=== PATIENT | male | born 1945 | race Caucasian/White ===

== ENCOUNTER 2020-06-05 22:42 | Inpatient (IN) | payer MEDICARE ==
[~2020-06-05] VITALS: Ht 165.1 cm; Wt 85.7 kg
[~2020-06-05 22:42] MED LIST: AMLO10TA80 PO; ASPI-1160 PO; LANTUSUD SUBCUT; LOSA100T3 PO; METO25TA6 PO
[2020-06-05 22:45] VITALS: BP 164/67
[2020-06-05 23:00] VITALS: BP 164/67
[2020-06-05 23:40] VITALS: BP 143/64
[2020-06-05] MEDS ORDERED: ATOR10TA69 MT (23:59)
[2020-06-06] MEDS ORDERED: ONDANSETRON 4MG ODT PO PRN (00:45)
[2020-06-06] MEDS ORDERED: POLYETHYLENE GLYCOL 3350 (17GM) 1 DOSE PACK PO PRN (00:45)
[2020-06-06] MEDS ORDERED: DEXTROSE 50% WATER 50ML SYRINGE IV PRN (00:45)
[2020-06-06] MEDS ORDERED: SENNOSIDES/DOCUSATE SOD 8.6/50MG TABLET PO PRN (00:45)
[2020-06-06] MEDS ORDERED: HYDROCODONE/ACETAMINOPHEN 5/325MG TABLET PO PRN (00:45)
[2020-06-06] MEDS ORDERED: *PATIENT'S OWN MEDICATION STORAGE XX SCH (02:45)
[2020-06-06 06:26] LABS: EOSINOPHILS % 5.7 % (0.0-5.0); HEMATOCRIT. 31.3 % (42.0-52.0); HEMOGLOBIN. 10.7 g/dL (14.0-18.0); LYMPHOCYTES % 20.6 % (20.0-50.0); MEAN CORPUSCULAR VOLUME 90.5 fL (80.0-94.0); MEAN PLATELET VOLUME 8.6 fl (7.4-10.4); MONOCYTES % 12.9 % (2.0-8.0); NEUTROPHILS % 59.8 % (40.0-76.0); PLATELET 219 x1000/uL (130-400); RED BLOOD CELL COUNT 3.46 mill/uL (4.7-6.1); RED CELL DISTRIBUTION WIDTH 13.6 % (11.6-14.6)
[2020-06-06 06:29] LABS: CHLORIDE 107 mEq/L (98-107)
[2020-06-06] MEDS: BLOOD SUGAR DIAGNOSTIC STRIP TEST SCH ×4 (06:58→20:35)
[2020-06-06 07:58] VITALS: BP 132/40
[2020-06-06] MEDS: INSULIN LISPRO 100 UNITS/ML SUBCUT SCH ×4 (09:00→21:09)
[2020-06-06] MEDS: CLOPIDOGREL 75MG TABLET PO SCH (09:32)
[2020-06-06] MEDS: HEPARIN 5000 UNITS/ML VIAL SUBCUT SCH ×2 (09:32→20:35)
[2020-06-06] MEDS: FAMOTIDINE 20MG TABLET PO SCH (09:32)
[2020-06-06] MEDS: ASPIRIN 325MG EC TABLET PO SCH (17:40)
[2020-06-06 20:00] VITALS: BP 146/74
[2020-06-06] MEDS: ATORVASTATIN CALCIUM 40MG TABLET PO SCH (20:35)
[2020-06-06] MEDS: INSULIN GLARGINE UD 100 UNITS/ML SYR SUBCUT SCH (21:10)
[2020-06-07 04:40] LABS: CLARITY URINE CLEAR (CLEAR); COLOR URINE YELLOW (YELLOW); KETONES URINE NEGATIVE (NEGATIVE); LEUKOCYTE ESTERASE URINE NEGATIVE (NEGATIVE); NITRITE URINE NEGATIVE (NEGATIVE); OCCULT BLOOD URINE TRACE (NEGATIVE); PROTEIN URINE 2+ (NEGATIVE); SPECIFIC GRAVITY URINE 1.021 (1.005-1.030); UROBILINOGEN URINE 0.2 E.U./dL (0.2-1.0)
[2020-06-07] MEDS: INSULIN LISPRO 100 UNITS/ML SUBCUT SCH ×4 (05:14→22:17)
[2020-06-07] MEDS: BLOOD SUGAR DIAGNOSTIC STRIP TEST SCH ×4 (05:14→21:49)
[2020-06-07 07:00] LABS: BASOPHILS % 0.8 % (0.0-2.0); EOSINOPHILS % 7.2 % (0.0-5.0); HEMATOCRIT. 32.3 % (42.0-52.0); HEMOGLOBIN. 10.9 g/dL (14.0-18.0); LYMPHOCYTES % 22.2 % (20.0-50.0); MEAN CORPUSCULAR HEMOGLOBIN 30.6 pg (28.0-32.0); MEAN CORPUSCULAR VOLUME 90.2 fL (80.0-94.0); MEAN PLATELET VOLUME 9.1 fl (7.4-10.4); MONOCYTES % 12.9 % (2.0-8.0); NEUTROPHILS % 56.9 % (40.0-76.0); PLATELET 229 x1000/uL (130-400); RED BLOOD CELL COUNT 3.57 mill/uL (4.7-6.1); RED CELL DISTRIBUTION WIDTH 13.3 % (11.6-14.6)
[2020-06-07 07:15] LABS: CHLORIDE 108 mEq/L (98-107)
[2020-06-07 07:23] LABS: PHOSPHORUS 3.1 mg/dL (2.5-4.9)
[2020-06-07 07:24] LABS: LDL CHOLESTEROL 59 mg/dL (5-100); TOTAL IRON BINDING CAPACITY 231 ug/dL (250-450)
[2020-06-07 07:26] LABS: HDL CHOLESTEROL 36 mg/dL (40-59)
[2020-06-07 07:33] LABS: PROSTRATE SPECIFIC AG TOTAL 4.07 ng/mL (0.0-4.0)
[2020-06-07 08:00] VITALS: BP 152/40
[2020-06-07] MEDS: HEPARIN 5000 UNITS/ML VIAL SUBCUT SCH ×2 (09:13→22:09)
[2020-06-07] MEDS: FAMOTIDINE 20MG TABLET PO SCH (09:13)
[2020-06-07] MEDS: CLOPIDOGREL 75MG TABLET PO SCH (09:13)
[2020-06-07] MEDS: ASPIRIN 325MG EC TABLET PO SCH (09:13)
[2020-06-07] MEDS: CYANOCOBALAMIN 1000MCG/ML VIAL IM SCH (11:27)
[2020-06-07] MEDS: POVIDONE-IODINE 10% TOPICAL SOLN 240ML TOP SCH (11:28)
[2020-06-07 20:00] VITALS: BP 124/62
[2020-06-07 21:16] LABS: T4 FREE 1.4 ng/dL (0.76-1.46)
[2020-06-07] MEDS: ATORVASTATIN CALCIUM 40MG TABLET PO SCH (22:10)
[2020-06-07] MEDS: INSULIN GLARGINE UD 100 UNITS/ML SYR SUBCUT SCH (22:19)
[2020-06-08 03:36] LABS: *AMPHETAMINES SCREEN URINE NEGATIVE (NEGATIVE); *BARBITURATES SCREEN URINE NEGATIVE (NEGATIVE); *BENZODIAZEPINES SCREEN URINE NEGATIVE (NEGATIVE); *COCAINE SCREEN URINE NEGATIVE (NEGATIVE); METHADONE URINE SCREEN NEGATIVE (NEGATIVE)
[2020-06-08 03:37] LABS: CANNABINOID URINE SCREEN NEGATIVE (NEGATIVE); OPIATES URINE SCREEN NEGATIVE (NEGATIVE); PHENCYCLIDINE URINE SCREEN NEGATIVE (NEGATIVE)
[2020-06-08 04:09] LABS: BASOPHILS % 0.8 % (0.0-2.0); EOSINOPHILS % 5.9 % (0.0-5.0); HEMATOCRIT. 34.6 % (42.0-52.0); HEMOGLOBIN. 11.3 g/dL (14.0-18.0); LYMPHOCYTES % 25.2 % (20.0-50.0); MEAN CORPUSCULAR VOLUME 91.5 fL (80.0-94.0); MEAN PLATELET VOLUME 8.8 fl (7.4-10.4); MONOCYTES % 14.3 % (2.0-8.0); NEUTROPHILS % 53.8 % (40.0-76.0); PLATELET 233 x1000/uL (130-400); RED BLOOD CELL COUNT 3.78 mill/uL (4.7-6.1); RED CELL DISTRIBUTION WIDTH 13.7 % (11.6-14.6)
[2020-06-08 04:40] LABS: PROTHROMBIN TIME 11.1 sec (9.6-11.0)
[2020-06-08 05:34] LABS: CHLORIDE 109 mEq/L (98-107)
[2020-06-08 06:00] LABS: HEPATITIS B SURFACE ANTIGEN NEGATIVE
[2020-06-08] MEDS: BLOOD SUGAR DIAGNOSTIC STRIP TEST SCH ×4 (06:25→21:11)
[2020-06-08] MEDS: INSULIN LISPRO 100 UNITS/ML SUBCUT SCH ×4 (06:26→21:21)
[2020-06-08 06:30] LABS: HEPATITIS A AB IGM NEGATIVE (NEGATIVE)
[2020-06-08 07:59] VITALS: BP 159/85
[2020-06-08] MEDS: HEPARIN 5000 UNITS/ML VIAL SUBCUT SCH ×2 (08:41→21:11)
[2020-06-08] MEDS: CYANOCOBALAMIN 1000MCG/ML VIAL IM SCH (08:41)
[2020-06-08] MEDS: CLOPIDOGREL 75MG TABLET PO SCH (08:42)
[2020-06-08] MEDS: ASPIRIN 325MG EC TABLET PO SCH (08:42)
[2020-06-08] MEDS: FAMOTIDINE 20MG TABLET PO SCH (08:42)
[2020-06-08] MEDS: POVIDONE-IODINE 10% TOPICAL SOLN 240ML TOP SCH (08:56)
[2020-06-08 20:00] VITALS: BP 110/50
[2020-06-08] MEDS: INSULIN GLARGINE UD 100 UNITS/ML SYR SUBCUT SCH (21:22)
[2020-06-08] MEDS: ATORVASTATIN CALCIUM 40MG TABLET PO SCH (21:25)
[2020-06-09] MEDS: BLOOD SUGAR DIAGNOSTIC STRIP TEST SCH ×3 (06:05→21:11)
[2020-06-09] MEDS: INSULIN LISPRO 100 UNITS/ML SUBCUT SCH ×4 (06:08→21:20)
[2020-06-09 07:13] LABS: BASOPHILS % 0.6 % (0.0-2.0); EOSINOPHILS % 5.6 % (0.0-5.0); HEMATOCRIT. 34.3 % (42.0-52.0); HEMOGLOBIN. 11.5 g/dL (14.0-18.0); LYMPHOCYTES % 25.8 % (20.0-50.0); MEAN CORPUSCULAR HEMOGLOBIN 30.5 pg (28.0-32.0); MEAN CORPUSCULAR VOLUME 90.5 fL (80.0-94.0); MEAN PLATELET VOLUME 8.7 fl (7.4-10.4); MONOCYTES % 13.9 % (2.0-8.0); NEUTROPHILS % 54.1 % (40.0-76.0); PLATELET 233 x1000/uL (130-400); RED BLOOD CELL COUNT 3.79 mill/uL (4.7-6.1); RED CELL DISTRIBUTION WIDTH 13.5 % (11.6-14.6)
[2020-06-09 07:33] VITALS: BP 143/48
[2020-06-09] MEDS: HEPARIN 5000 UNITS/ML VIAL SUBCUT SCH ×2 (08:51→21:13)
[2020-06-09] MEDS: FAMOTIDINE 20MG TABLET PO SCH (08:51)
[2020-06-09] MEDS: CLOPIDOGREL 75MG TABLET PO SCH (08:52)
[2020-06-09] MEDS: ASPIRIN 325MG EC TABLET PO SCH (08:52)
[2020-06-09] MEDS: CYANOCOBALAMIN 1000MCG/ML VIAL IM SCH (08:52)
[2020-06-09] MEDS: POVIDONE-IODINE 10% TOPICAL SOLN 240ML TOP SCH (11:39)
[2020-06-09 20:00] VITALS: BP 144/60
[2020-06-09] MEDS: ATORVASTATIN CALCIUM 40MG TABLET PO SCH (21:12)
[2020-06-09] MEDS: INSULIN GLARGINE UD 100 UNITS/ML SYR SUBCUT SCH (21:21)
[2020-06-10] MEDS: BLOOD SUGAR DIAGNOSTIC STRIP TEST SCH ×4 (06:33→20:55)
[2020-06-10] MEDS: INSULIN LISPRO 100 UNITS/ML SUBCUT SCH ×4 (06:37→20:55)
[2020-06-10 08:12] VITALS: BP 140/63
[2020-06-10] MEDS: HEPARIN 5000 UNITS/ML VIAL SUBCUT SCH ×2 (09:05→20:55)
[2020-06-10] MEDS: CYANOCOBALAMIN 1000MCG/ML VIAL IM SCH (09:05)
[2020-06-10] MEDS: CLOPIDOGREL 75MG TABLET PO SCH (09:06)
[2020-06-10] MEDS: ASPIRIN 325MG EC TABLET PO SCH (09:06)
[2020-06-10] MEDS: FAMOTIDINE 20MG TABLET PO SCH (09:06)
[2020-06-10] MEDS: POVIDONE-IODINE 10% TOPICAL SOLN 240ML TOP SCH (09:46)
[2020-06-10 20:00] VITALS: BP 147/51
[2020-06-10] MEDS: ATORVASTATIN CALCIUM 40MG TABLET PO SCH (20:53)
[2020-06-10] MEDS ORDERED: METRONIDAZOLE 500MG TABLET PO SCH (21:00)
[2020-06-10] MEDS: INSULIN GLARGINE UD 100 UNITS/ML SYR SUBCUT SCH (21:17)
[2020-06-10] MEDS ORDERED: CEFTRIAXONE 2 G in DEXTROSE 5% WATER 50 ML IV SCH (22:00)
[2020-06-11 06:37] LABS: BASOPHILS % 0.2 % (0.0-2.0); EOSINOPHILS % 4.9 % (0.0-5.0); HEMATOCRIT. 34.5 % (42.0-52.0); HEMOGLOBIN. 11.9 g/dL (14.0-18.0); LYMPHOCYTES % 12.7 % (20.0-50.0); MEAN CORPUSCULAR VOLUME 89.6 fL (80.0-94.0); MEAN PLATELET VOLUME 9.1 fl (7.4-10.4); NEUTROPHILS % 71.2 % (40.0-76.0); PLATELET 246 x1000/uL (130-400); RED BLOOD CELL COUNT 3.85 mill/uL (4.7-6.1); RED CELL DISTRIBUTION WIDTH 13.5 % (11.6-14.6)
[2020-06-11] MEDS: BLOOD SUGAR DIAGNOSTIC STRIP TEST SCH ×4 (06:37→20:54)
[2020-06-11] MEDS: INSULIN LISPRO 100 UNITS/ML SUBCUT SCH ×4 (06:39→21:10)
[2020-06-11 07:00] LABS: CHLORIDE 106 mEq/L (98-107)
[2020-06-11 08:18] VITALS: BP 135/62
[2020-06-11] MEDS ORDERED: CEFTRIAXONE 2 G PREMIX 50 ML IV SCH (09:00)
[2020-06-11] MEDS: CYANOCOBALAMIN 1000MCG/ML VIAL IM SCH (09:10)
[2020-06-11] MEDS: POVIDONE-IODINE 10% TOPICAL SOLN 240ML TOP SCH (09:11)
[2020-06-11] MEDS: ASPIRIN 325MG EC TABLET PO SCH (09:11)
[2020-06-11] MEDS: HEPARIN 5000 UNITS/ML VIAL SUBCUT SCH ×2 (09:11→21:04)
[2020-06-11] MEDS: FAMOTIDINE 20MG TABLET PO SCH (09:11)
[2020-06-11] MEDS: CLOPIDOGREL 75MG TABLET PO SCH (09:11)
[2020-06-11] MEDS ORDERED: DIPHENHYDRAMINE HCL/ZINC ACET 28 GM CREAM TOP PRN (11:45)
[2020-06-11] MEDS ORDERED: HYDROCORTISONE 1% RECTAL CREAM 30GM PR PRN (13:30)
[2020-06-11] MEDS: HYDROCORTISONE 1% CREAM 30GM TOP SCH ×2 (15:13→20:59)
[2020-06-11 17:10] LABS: 25-HYDROXY VITAMIN D3 23 ng/mL (.)
[2020-06-11] MEDS: METRONIDAZOLE 500MG TABLET PO SCH (19:17)
[2020-06-11] MEDS: CEFTRIAXONE 2 G in DEXTROSE 5% WATER 50 ML IV SCH (19:29)
[2020-06-11 20:00] VITALS: BP 151/82
[2020-06-11] MEDS: ATORVASTATIN CALCIUM 40MG TABLET PO SCH (20:59)
[2020-06-11] MEDS: INSULIN GLARGINE UD 100 UNITS/ML SYR SUBCUT SCH (21:10)
[2020-06-11] MEDS: ACETAMINOPHEN 325MG TABLET PO PRN (22:03)
[2020-06-12] MEDS: HYDROCORTISONE 1% CREAM 30GM TOP SCH ×3 (06:00→20:57)
[2020-06-12] MEDS: BLOOD SUGAR DIAGNOSTIC STRIP TEST SCH ×4 (06:08→20:54)
[2020-06-12] MEDS: METRONIDAZOLE 500MG TABLET PO SCH ×2 (06:11→17:41)
[2020-06-12 07:58] VITALS: BP 139/56
[2020-06-12] MEDS: FAMOTIDINE 20MG TABLET PO SCH ×2 (08:58→09:13)
[2020-06-12] MEDS: CLOPIDOGREL 75MG TABLET PO SCH (08:58)
[2020-06-12] MEDS: ASPIRIN 325MG EC TABLET PO SCH ×2 (08:58→09:13)
[2020-06-12] MEDS: INSULIN LISPRO 100 UNITS/ML SUBCUT SCH ×4 (09:00→21:05)
[2020-06-12] MEDS: POVIDONE-IODINE 10% TOPICAL SOLN 240ML TOP SCH (09:00)
[2020-06-12] MEDS: CYANOCOBALAMIN 1000MCG/ML VIAL IM SCH (09:14)
[2020-06-12] MEDS: HEPARIN 5000 UNITS/ML VIAL SUBCUT SCH ×2 (09:19→20:54)
[2020-06-12] MEDS: ERGOCALCIFEROL 50000UNITS CAPSULE PO SCH (13:38)
[2020-06-12] MEDS ORDERED: SORBITOL 70% SOLN 30ML PO NR (17:30)
[2020-06-12] MEDS: METOCLOPRAMIDE HCL 5MG TABLET PO SCH (17:43)
[2020-06-12] MEDS: CEFTRIAXONE 2 G in DEXTROSE 5% WATER 50 ML IV SCH (17:44)
[2020-06-12 20:00] VITALS: BP 148/78
[2020-06-12] MEDS: ATORVASTATIN CALCIUM 40MG TABLET PO SCH (20:54)
[2020-06-12] MEDS: LACTULOSE 20G/30ML UDC PO SCH (20:54)
[2020-06-12] MEDS: INSULIN GLARGINE UD 100 UNITS/ML SYR SUBCUT SCH (21:06)
[2020-06-13] MEDS: BLOOD SUGAR DIAGNOSTIC STRIP TEST SCH ×4 (06:00→20:51)
[2020-06-13] MEDS: METOCLOPRAMIDE HCL 5MG TABLET PO SCH ×5 (06:00→23:34)
[2020-06-13] MEDS: HYDROCORTISONE 1% CREAM 30GM TOP SCH ×3 (06:00→22:14)
[2020-06-13] MEDS: METRONIDAZOLE 500MG TABLET PO SCH ×2 (06:02→17:01)
[2020-06-13] MEDS: INSULIN LISPRO 100 UNITS/ML SUBCUT SCH ×4 (07:16→20:53)
[2020-06-13 08:07] VITALS: BP 152/51
[2020-06-13] MEDS: CLOPIDOGREL 75MG TABLET PO SCH (08:08)
[2020-06-13] MEDS: FAMOTIDINE 20MG TABLET PO SCH (08:08)
[2020-06-13] MEDS: ASPIRIN 325MG EC TABLET PO SCH (08:08)
[2020-06-13] MEDS: HEPARIN 5000 UNITS/ML VIAL SUBCUT SCH ×2 (08:09→20:52)
[2020-06-13] MEDS: CYANOCOBALAMIN 1000MCG/ML VIAL IM SCH (08:09)
[2020-06-13] MEDS: POLYETHYLENE GLYCOL 3350 (17GM) 1 DOSE PACK PO SCH (08:10)
[2020-06-13] MEDS: DOCUSATE SODIUM SUGAR FREE 100MG/10ML UDC PO SCH (08:10)
[2020-06-13] MEDS: POVIDONE-IODINE 10% TOPICAL SOLN 240ML TOP SCH (08:10)
[2020-06-13] MEDS: CEFTRIAXONE 2 G in DEXTROSE 5% WATER 50 ML IV SCH (17:02)
[2020-06-13 20:00] VITALS: BP 145/57
[2020-06-13] MEDS: LACTULOSE 20G/30ML UDC PO SCH (20:51)
[2020-06-13] MEDS: ATORVASTATIN CALCIUM 40MG TABLET PO SCH (20:51)
[2020-06-13] MEDS: INSULIN GLARGINE UD 100 UNITS/ML SYR SUBCUT SCH (22:16)
[2020-06-14] VITALS (7 sets, daily range): BP systolic 128–160; BP diastolic 39–71
[2020-06-14] MEDS: METRONIDAZOLE 500MG TABLET PO SCH ×2 (05:33→17:01)
[2020-06-14] MEDS: HYDROCORTISONE 1% CREAM 30GM TOP SCH ×3 (05:33→21:33)
[2020-06-14] MEDS: INSULIN LISPRO 100 UNITS/ML SUBCUT SCH ×4 (07:00→21:42)
[2020-06-14] MEDS: BLOOD SUGAR DIAGNOSTIC STRIP TEST SCH ×4 (07:00→21:32)
[2020-06-14 07:17] LABS: BASOPHILS % 0.8 % (0.0-2.0); EOSINOPHILS % 11.5 % (0.0-5.0); HEMATOCRIT. 33.3 % (42.0-52.0); HEMOGLOBIN. 11.3 g/dL (14.0-18.0); LYMPHOCYTES % 25.8 % (20.0-50.0); MEAN CORPUSCULAR HEMOGLOBIN 30.9 pg (28.0-32.0); MEAN CORPUSCULAR VOLUME 90.8 fL (80.0-94.0); MEAN PLATELET VOLUME 9.2 fl (7.4-10.4); MONOCYTES % 13.8 % (2.0-8.0); NEUTROPHILS % 48.1 % (40.0-76.0); PLATELET 256 x1000/uL (130-400); RED BLOOD CELL COUNT 3.66 mill/uL (4.7-6.1); RED CELL DISTRIBUTION WIDTH 13.9 % (11.6-14.6)
[2020-06-14 07:28] LABS: CHLORIDE 108 mEq/L (98-107)
[2020-06-14] MEDS: POVIDONE-IODINE 10% TOPICAL SOLN 240ML TOP SCH (08:20)
[2020-06-14] MEDS: DOCUSATE SODIUM SUGAR FREE 100MG/10ML UDC PO SCH (08:20)
[2020-06-14] MEDS: CYANOCOBALAMIN 1000MCG/ML VIAL IM SCH (08:21)
[2020-06-14] MEDS: ASPIRIN 325MG EC TABLET PO SCH (08:21)
[2020-06-14] MEDS: FAMOTIDINE 20MG TABLET PO SCH (08:21)
[2020-06-14] MEDS: HEPARIN 5000 UNITS/ML VIAL SUBCUT SCH ×2 (08:21→21:34)
[2020-06-14] MEDS: CLOPIDOGREL 75MG TABLET PO SCH (08:21)
[2020-06-14] MEDS: POLYETHYLENE GLYCOL 3350 (17GM) 1 DOSE PACK PO SCH (08:22)
[2020-06-14] MEDS ORDERED: CLONIDINE 0.1MG TABLET PO PRN (11:15)
[2020-06-14] MEDS: CEFTRIAXONE 2 G in DEXTROSE 5% WATER 50 ML IV SCH (17:02)
[2020-06-14] MEDS: LACTULOSE 20G/30ML UDC PO SCH (21:00)
[2020-06-14] MEDS: ATORVASTATIN CALCIUM 40MG TABLET PO SCH (21:34)
[2020-06-14] MEDS: INSULIN GLARGINE UD 100 UNITS/ML SYR SUBCUT SCH (21:43)
[2020-06-15] MEDS: BLOOD SUGAR DIAGNOSTIC STRIP TEST SCH ×4 (05:52→21:29)
[2020-06-15] MEDS: INSULIN LISPRO 100 UNITS/ML SUBCUT SCH ×4 (05:52→21:42)
[2020-06-15] MEDS: METRONIDAZOLE 500MG TABLET PO SCH ×2 (05:53→17:03)
[2020-06-15] MEDS: HYDROCORTISONE 1% CREAM 30GM TOP SCH ×3 (05:53→21:32)
[2020-06-15 08:00] VITALS: BP 119/54
[2020-06-15] MEDS: ASPIRIN 325MG EC TABLET PO SCH (08:19)
[2020-06-15] MEDS: CLOPIDOGREL 75MG TABLET PO SCH (08:19)
[2020-06-15] MEDS: FAMOTIDINE 20MG TABLET PO SCH (08:19)
[2020-06-15] MEDS: LOSARTAN POTASSIUM 50 MG TABLET PO SCH (08:20)
[2020-06-15] MEDS: DOCUSATE SODIUM SUGAR FREE 100MG/10ML UDC PO SCH ×2 (08:20→08:32)
[2020-06-15] MEDS: POLYETHYLENE GLYCOL 3350 (17GM) 1 DOSE PACK PO SCH ×2 (08:20→08:32)
[2020-06-15] MEDS: AMLODIPINE 10MG TABLET PO SCH (08:20)
[2020-06-15] MEDS: HEPARIN 5000 UNITS/ML VIAL SUBCUT SCH ×2 (08:20→21:31)
[2020-06-15] MEDS: POVIDONE-IODINE 10% TOPICAL SOLN 240ML TOP SCH (08:21)
[2020-06-15] MEDS: LACTULOSE 20G/30ML UDC PO SCH ×3 (16:09→21:30)
[2020-06-15] MEDS: CEFTRIAXONE 2 G in DEXTROSE 5% WATER 50 ML IV SCH (17:03)
[2020-06-15 20:00] VITALS: BP 109/62
[2020-06-15] MEDS: ATORVASTATIN CALCIUM 40MG TABLET PO SCH (21:31)
[2020-06-15] MEDS: INSULIN GLARGINE UD 100 UNITS/ML SYR SUBCUT SCH (21:43)
[2020-06-16] MEDS: BLOOD SUGAR DIAGNOSTIC STRIP TEST SCH ×4 (06:19→21:00)
[2020-06-16] MEDS: METRONIDAZOLE 500MG TABLET PO SCH ×2 (06:20→17:10)
[2020-06-16] MEDS: HYDROCORTISONE 1% CREAM 30GM TOP SCH ×3 (06:20→22:29)
[2020-06-16] MEDS: INSULIN LISPRO 100 UNITS/ML SUBCUT SCH ×4 (06:25→22:39)
[2020-06-16 08:00] VITALS: BP 137/51
[2020-06-16] MEDS: ASPIRIN 325MG EC TABLET PO SCH (08:22)
[2020-06-16] MEDS: FAMOTIDINE 20MG TABLET PO SCH (08:22)
[2020-06-16] MEDS: AMLODIPINE 10MG TABLET PO SCH (08:22)
[2020-06-16] MEDS: CLOPIDOGREL 75MG TABLET PO SCH (08:23)
[2020-06-16] MEDS: LOSARTAN POTASSIUM 50 MG TABLET PO SCH (08:23)
[2020-06-16] MEDS: HEPARIN 5000 UNITS/ML VIAL SUBCUT SCH ×2 (08:24→22:29)
[2020-06-16] MEDS: POVIDONE-IODINE 10% TOPICAL SOLN 240ML TOP SCH (08:24)
[2020-06-16] MEDS: POLYETHYLENE GLYCOL 3350 (17GM) 1 DOSE PACK PO SCH (08:24)
[2020-06-16] MEDS: DOCUSATE SODIUM SUGAR FREE 100MG/10ML UDC PO SCH (08:25)
[2020-06-16] MEDS: CEFTRIAXONE 2 G in DEXTROSE 5% WATER 50 ML IV SCH (17:09)
[2020-06-16 20:00] VITALS: BP 115/46
[2020-06-16] MEDS: LACTULOSE 20G/30ML UDC PO SCH ×2 (21:00)
[2020-06-16 22:00] VITALS: BP 115/46
[2020-06-16] MEDS: ATORVASTATIN CALCIUM 40MG TABLET PO SCH (22:29)
[2020-06-16] MEDS: INSULIN GLARGINE UD 100 UNITS/ML SYR SUBCUT SCH (22:42)
[2020-06-17 05:11] LABS: CHLORIDE 105 mEq/L (98-107)
[2020-06-17 05:28] LABS: BASOPHILS % 1.4 % (0.0-2.0); EOSINOPHILS % 7.4 % (0.0-5.0); HEMATOCRIT. 34.4 % (42.0-52.0); HEMOGLOBIN. 11.3 g/dL (14.0-18.0); LYMPHOCYTES % 27.3 % (20.0-50.0); MEAN CORPUSCULAR HEMOGLOBIN 29.6 pg (28.0-32.0); MEAN CORPUSCULAR VOLUME 90.2 fL (80.0-94.0); MEAN PLATELET VOLUME 8.8 fl (7.4-10.4); MONOCYTES % 11.3 % (2.0-8.0); NEUTROPHILS % 52.6 % (40.0-76.0); PLATELET 270 x1000/uL (130-400); RED BLOOD CELL COUNT 3.81 mill/uL (4.7-6.1); RED CELL DISTRIBUTION WIDTH 13.6 % (11.6-14.6)
[2020-06-17] MEDS: BLOOD SUGAR DIAGNOSTIC STRIP TEST SCH ×4 (06:28→21:38)
[2020-06-17] MEDS: HYDROCORTISONE 1% CREAM 30GM TOP SCH ×3 (06:29→21:45)
[2020-06-17] MEDS: METRONIDAZOLE 500MG TABLET PO SCH ×2 (06:29→18:22)
[2020-06-17] MEDS: INSULIN LISPRO 100 UNITS/ML SUBCUT SCH ×4 (06:32→21:41)
[2020-06-17 07:44] VITALS: BP 128/83
[2020-06-17] MEDS: CLOPIDOGREL 75MG TABLET PO SCH (08:42)
[2020-06-17] MEDS: FAMOTIDINE 20MG TABLET PO SCH (08:42)
[2020-06-17] MEDS: LOSARTAN POTASSIUM 50 MG TABLET PO SCH (08:42)
[2020-06-17] MEDS: POLYETHYLENE GLYCOL 3350 (17GM) 1 DOSE PACK PO SCH (08:42)
[2020-06-17] MEDS: AMLODIPINE 10MG TABLET PO SCH (08:42)
[2020-06-17] MEDS: ASPIRIN 325MG EC TABLET PO SCH (08:42)
[2020-06-17] MEDS: DOCUSATE SODIUM SUGAR FREE 100MG/10ML UDC PO SCH (08:43)
[2020-06-17] MEDS: HEPARIN 5000 UNITS/ML VIAL SUBCUT SCH ×2 (08:44→21:45)
[2020-06-17] MEDS: POVIDONE-IODINE 10% TOPICAL SOLN 240ML TOP SCH (08:51)
[2020-06-17] MEDS: CEFTRIAXONE 2 G in DEXTROSE 5% WATER 50 ML IV SCH (18:23)
[2020-06-17 20:00] VITALS: BP 123/54
[2020-06-17] MEDS: LACTULOSE 20G/30ML UDC PO SCH (21:00)
[2020-06-17] MEDS: INSULIN GLARGINE UD 100 UNITS/ML SYR SUBCUT SCH (21:41)
[2020-06-17] MEDS: ATORVASTATIN CALCIUM 40MG TABLET PO SCH (21:43)
[2020-06-17] MEDS: ACETAMINOPHEN 325MG TABLET PO PRN (23:04)
[2020-06-18] MEDS: HYDROCORTISONE 1% CREAM 30GM TOP SCH ×3 (05:44→21:34)
[2020-06-18] MEDS: BLOOD SUGAR DIAGNOSTIC STRIP TEST SCH ×4 (05:44→20:40)
[2020-06-18] MEDS: METRONIDAZOLE 500MG TABLET PO SCH ×2 (05:47→17:24)
[2020-06-18 07:45] VITALS: BP 131/45
[2020-06-18] MEDS: INSULIN LISPRO 100 UNITS/ML SUBCUT SCH ×4 (09:00→21:39)
[2020-06-18] MEDS: POLYETHYLENE GLYCOL 3350 (17GM) 1 DOSE PACK PO SCH (09:00)
[2020-06-18] MEDS: DOCUSATE SODIUM SUGAR FREE 100MG/10ML UDC PO SCH (09:00)
[2020-06-18] MEDS: AMLODIPINE 10MG TABLET PO SCH (09:02)
[2020-06-18] MEDS: ASPIRIN 325MG EC TABLET PO SCH (09:02)
[2020-06-18] MEDS: CLOPIDOGREL 75MG TABLET PO SCH (09:02)
[2020-06-18] MEDS: FAMOTIDINE 20MG TABLET PO SCH (09:02)
[2020-06-18] MEDS: LOSARTAN POTASSIUM 50 MG TABLET PO SCH (09:02)
[2020-06-18] MEDS: HEPARIN 5000 UNITS/ML VIAL SUBCUT SCH ×2 (09:03→21:33)
[2020-06-18] MEDS: POVIDONE-IODINE 10% TOPICAL SOLN 240ML TOP SCH (09:04)
[2020-06-18] MEDS: CEFTRIAXONE 2 G in DEXTROSE 5% WATER 50 ML IV SCH (17:15)
[2020-06-18 20:19] VITALS: BP 124/57
[2020-06-18] MEDS: LACTULOSE 20G/30ML UDC PO SCH (21:00)
[2020-06-18] MEDS: ATORVASTATIN CALCIUM 40MG TABLET PO SCH (21:33)
[2020-06-18] MEDS: INSULIN GLARGINE UD 100 UNITS/ML SYR SUBCUT SCH (21:39)
[2020-06-19] MEDS: BLOOD SUGAR DIAGNOSTIC STRIP TEST SCH ×4 (05:49→20:48)
[2020-06-19] MEDS: METRONIDAZOLE 500MG TABLET PO SCH ×2 (06:04→17:27)
[2020-06-19] MEDS: HYDROCORTISONE 1% CREAM 30GM TOP SCH ×3 (06:05→20:48)
[2020-06-19] MEDS: INSULIN LISPRO 100 UNITS/ML SUBCUT SCH ×4 (06:15→21:54)
[2020-06-19 06:30] LABS: CHLORIDE 109 mEq/L (98-107)
[2020-06-19 06:34] LABS: BASOPHILS % 2.1 % (0.0-2.0); EOSINOPHILS % 5.3 % (0.0-5.0); HEMATOCRIT. 33.5 % (42.0-52.0); HEMOGLOBIN. 11.3 g/dL (14.0-18.0); LYMPHOCYTES % 22.3 % (20.0-50.0); MEAN CORPUSCULAR HEMOGLOBIN 30.5 pg (28.0-32.0); MEAN CORPUSCULAR VOLUME 90.2 fL (80.0-94.0); MEAN PLATELET VOLUME 8.8 fl (7.4-10.4); MONOCYTES % 9.2 % (2.0-8.0); NEUTROPHILS % 61.1 % (40.0-76.0); PLATELET 293 x1000/uL (130-400); RED BLOOD CELL COUNT 3.71 mill/uL (4.7-6.1); RED CELL DISTRIBUTION WIDTH 13.8 % (11.6-14.6)
[2020-06-19 09:00] VITALS: BP 133/58
[2020-06-19] MEDS: HEPARIN 5000 UNITS/ML VIAL SUBCUT SCH ×2 (09:00→20:49)
[2020-06-19] MEDS: POLYETHYLENE GLYCOL 3350 (17GM) 1 DOSE PACK PO SCH (09:00)
[2020-06-19] MEDS: ASPIRIN 325MG EC TABLET PO SCH (09:00)
[2020-06-19] MEDS: DOCUSATE SODIUM SUGAR FREE 100MG/10ML UDC PO SCH (09:00)
[2020-06-19] MEDS: ERGOCALCIFEROL 50000UNITS CAPSULE PO SCH (09:01)
[2020-06-19] MEDS: CLOPIDOGREL 75MG TABLET PO SCH (09:01)
[2020-06-19] MEDS: FAMOTIDINE 20MG TABLET PO SCH (09:01)
[2020-06-19] MEDS: AMLODIPINE 10MG TABLET PO SCH (09:01)
[2020-06-19] MEDS: LOSARTAN POTASSIUM 50 MG TABLET PO SCH (09:01)
[2020-06-19] MEDS: POVIDONE-IODINE 10% TOPICAL SOLN 240ML TOP SCH (09:09)
[2020-06-19] MEDS ORDERED: OXYCODONE HCL 5MG TABLET PO PRN (12:00)
[2020-06-19] MEDS: CEFTRIAXONE 2 G in DEXTROSE 5% WATER 50 ML IV SCH (17:26)
[2020-06-19 20:00] VITALS: BP 118/46
[2020-06-19] MEDS: LACTULOSE 20G/30ML UDC PO SCH (20:45)
[2020-06-19] MEDS: ATORVASTATIN CALCIUM 40MG TABLET PO SCH (20:48)
[2020-06-19] MEDS: INSULIN GLARGINE UD 100 UNITS/ML SYR SUBCUT SCH (21:54)
[2020-06-20] MEDS: HYDROCORTISONE 1% CREAM 30GM TOP SCH ×3 (06:00→21:07)
[2020-06-20] MEDS: BLOOD SUGAR DIAGNOSTIC STRIP TEST SCH ×4 (06:08→21:07)
[2020-06-20] MEDS: METRONIDAZOLE 500MG TABLET PO SCH ×2 (06:09→17:52)
[2020-06-20] MEDS: INSULIN LISPRO 100 UNITS/ML SUBCUT SCH ×4 (06:33→21:20)
[2020-06-20 08:30] VITALS: BP 131/53
[2020-06-20] MEDS: POLYETHYLENE GLYCOL 3350 (17GM) 1 DOSE PACK PO SCH (09:00)
[2020-06-20] MEDS: DOCUSATE SODIUM SUGAR FREE 100MG/10ML UDC PO SCH (09:00)
[2020-06-20] MEDS: POVIDONE-IODINE 10% TOPICAL SOLN 240ML TOP SCH (09:00)
[2020-06-20] MEDS: HEPARIN 5000 UNITS/ML VIAL SUBCUT SCH ×2 (09:00→21:07)
[2020-06-20] MEDS: CLOPIDOGREL 75MG TABLET PO SCH (10:07)
[2020-06-20] MEDS: AMLODIPINE 10MG TABLET PO SCH (10:07)
[2020-06-20] MEDS: ASPIRIN 325MG EC TABLET PO SCH (10:07)
[2020-06-20] MEDS: LOSARTAN POTASSIUM 50 MG TABLET PO SCH (10:07)
[2020-06-20] MEDS: FAMOTIDINE 20MG TABLET PO SCH (10:07)
[2020-06-20] MEDS: CEFTRIAXONE 2 G in DEXTROSE 5% WATER 50 ML IV SCH (17:52)
[2020-06-20 20:00] VITALS: BP 121/53
[2020-06-20] MEDS: LACTULOSE 20G/30ML UDC PO SCH (21:00)
[2020-06-20] MEDS: ATORVASTATIN CALCIUM 40MG TABLET PO SCH (21:06)
[2020-06-20] MEDS: INSULIN GLARGINE UD 100 UNITS/ML SYR SUBCUT SCH (21:19)
[2020-06-21] MEDS: HYDROCORTISONE 1% CREAM 30GM TOP SCH ×3 (06:00→22:14)
[2020-06-21] MEDS: BLOOD SUGAR DIAGNOSTIC STRIP TEST SCH ×4 (06:12→21:57)
[2020-06-21] MEDS: METRONIDAZOLE 500MG TABLET PO SCH ×2 (06:13→18:52)
[2020-06-21] MEDS: INSULIN LISPRO 100 UNITS/ML SUBCUT SCH ×4 (06:54→22:18)
[2020-06-21 08:26] VITALS: BP 119/52
[2020-06-21] MEDS: DOCUSATE SODIUM SUGAR FREE 100MG/10ML UDC PO SCH (09:00)
[2020-06-21] MEDS: POLYETHYLENE GLYCOL 3350 (17GM) 1 DOSE PACK PO SCH (09:00)
[2020-06-21] MEDS: CYANOCOBALAMIN 1000MCG/ML VIAL IM SCH (10:18)
[2020-06-21] MEDS: LOSARTAN POTASSIUM 50 MG TABLET PO SCH (10:20)
[2020-06-21] MEDS: ASPIRIN 325MG EC TABLET PO SCH (10:20)
[2020-06-21] MEDS: AMLODIPINE 10MG TABLET PO SCH (10:21)
[2020-06-21] MEDS: FAMOTIDINE 20MG TABLET PO SCH (10:22)
[2020-06-21] MEDS: CLOPIDOGREL 75MG TABLET PO SCH (10:22)
[2020-06-21] MEDS: POVIDONE-IODINE 10% TOPICAL SOLN 240ML TOP SCH (10:24)
[2020-06-21] MEDS: HEPARIN 5000 UNITS/ML VIAL SUBCUT SCH ×2 (10:24→21:56)
[2020-06-21] MEDS: CEFTRIAXONE 2 G in DEXTROSE 5% WATER 50 ML IV SCH (18:52)
[2020-06-21 20:00] VITALS: BP 111/45
[2020-06-21] MEDS: LACTULOSE 20G/30ML UDC PO SCH (21:00)
[2020-06-21] MEDS: ATORVASTATIN CALCIUM 40MG TABLET PO SCH (21:56)
[2020-06-21] MEDS: INSULIN GLARGINE UD 100 UNITS/ML SYR SUBCUT SCH (22:18)
[2020-06-22] MEDS: METRONIDAZOLE 500MG TABLET PO SCH ×2 (05:20→17:02)
[2020-06-22] MEDS: BLOOD SUGAR DIAGNOSTIC STRIP TEST SCH ×4 (05:22→21:26)
[2020-06-22] MEDS: HYDROCORTISONE 1% CREAM 30GM TOP SCH ×3 (05:22→21:30)
[2020-06-22 07:31] LABS: BASOPHILS % 1.6 % (0.0-2.0); EOSINOPHILS % 5.2 % (0.0-5.0); HEMATOCRIT. 32.3 % (42.0-52.0); HEMOGLOBIN. 11.3 g/dL (14.0-18.0); LYMPHOCYTES % 30.6 % (20.0-50.0); MEAN CORPUSCULAR HEMOGLOBIN 31.4 pg (28.0-32.0); MEAN CORPUSCULAR VOLUME 89.8 fL (80.0-94.0); MEAN PLATELET VOLUME 8.6 fl (7.4-10.4); MONOCYTES % 10.9 % (2.0-8.0); NEUTROPHILS % 51.7 % (40.0-76.0); PLATELET 264 x1000/uL (130-400); RED CELL DISTRIBUTION WIDTH 13.8 % (11.6-14.6)
[2020-06-22 08:00] VITALS: BP 133/59
[2020-06-22 08:00] LABS: CHLORIDE 107 mEq/L (98-107)
[2020-06-22] MEDS: FAMOTIDINE 20MG TABLET PO SCH (08:43)
[2020-06-22] MEDS: CLOPIDOGREL 75MG TABLET PO SCH (08:43)
[2020-06-22] MEDS: DOCUSATE SODIUM SUGAR FREE 100MG/10ML UDC PO SCH (08:43)
[2020-06-22] MEDS: AMLODIPINE 10MG TABLET PO SCH (08:44)
[2020-06-22] MEDS: LOSARTAN POTASSIUM 50 MG TABLET PO SCH (08:44)
[2020-06-22] MEDS: POLYETHYLENE GLYCOL 3350 (17GM) 1 DOSE PACK PO SCH (08:45)
[2020-06-22] MEDS: ASPIRIN 325MG EC TABLET PO SCH (08:45)
[2020-06-22] MEDS: HEPARIN 5000 UNITS/ML VIAL SUBCUT SCH ×2 (08:46→21:25)
[2020-06-22] MEDS: INSULIN LISPRO 100 UNITS/ML SUBCUT SCH ×4 (08:47→21:28)
[2020-06-22] MEDS: POVIDONE-IODINE 10% TOPICAL SOLN 240ML TOP SCH (08:48)
[2020-06-22] MEDS: CEFTRIAXONE 2 G in DEXTROSE 5% WATER 50 ML IV SCH (17:03)
[2020-06-22 20:00] VITALS: BP 114/51
[2020-06-22] MEDS: LACTULOSE 20G/30ML UDC PO SCH (21:00)
[2020-06-22] MEDS: ATORVASTATIN CALCIUM 40MG TABLET PO SCH (21:25)
[2020-06-22] MEDS: INSULIN GLARGINE UD 100 UNITS/ML SYR SUBCUT SCH (21:28)
[2020-06-23] MEDS: BLOOD SUGAR DIAGNOSTIC STRIP TEST SCH ×4 (06:26→21:57)
[2020-06-23] MEDS: HYDROCORTISONE 1% CREAM 30GM TOP SCH ×3 (06:54→21:54)
[2020-06-23] MEDS: METRONIDAZOLE 500MG TABLET PO SCH ×2 (06:55→17:43)
[2020-06-23] MEDS: INSULIN LISPRO 100 UNITS/ML SUBCUT SCH ×4 (07:02→21:56)
[2020-06-23] MEDS: DOCUSATE SODIUM SUGAR FREE 100MG/10ML UDC PO SCH (08:15)
[2020-06-23] MEDS: CLOPIDOGREL 75MG TABLET PO SCH (08:16)
[2020-06-23] MEDS: LOSARTAN POTASSIUM 50 MG TABLET PO SCH (08:16)
[2020-06-23] MEDS: ASPIRIN 325MG EC TABLET PO SCH (08:16)
[2020-06-23] MEDS: FAMOTIDINE 20MG TABLET PO SCH (08:17)
[2020-06-23] MEDS: HEPARIN 5000 UNITS/ML VIAL SUBCUT SCH ×2 (08:17→21:55)
[2020-06-23] MEDS: AMLODIPINE 10MG TABLET PO SCH (08:17)
[2020-06-23] MEDS: POVIDONE-IODINE 10% TOPICAL SOLN 240ML TOP SCH (08:18)
[2020-06-23] MEDS: POLYETHYLENE GLYCOL 3350 (17GM) 1 DOSE PACK PO SCH (08:18)
[2020-06-23 08:22] VITALS: BP 129/56
[2020-06-23] MEDS: CEFTRIAXONE 2 G in DEXTROSE 5% WATER 50 ML IV SCH (17:41)
[2020-06-23 20:00] VITALS: BP 117/47
[2020-06-23] MEDS: LACTULOSE 20G/30ML UDC PO SCH (21:00)
[2020-06-23] MEDS: ATORVASTATIN CALCIUM 40MG TABLET PO SCH (21:54)
[2020-06-23] MEDS: INSULIN GLARGINE UD 100 UNITS/ML SYR SUBCUT SCH (21:57)
[2020-06-24] MEDS: METRONIDAZOLE 500MG TABLET PO SCH ×2 (05:48→17:49)
[2020-06-24] MEDS: HYDROCORTISONE 1% CREAM 30GM TOP SCH ×3 (05:49→22:18)
[2020-06-24] MEDS: BLOOD SUGAR DIAGNOSTIC STRIP TEST SCH ×4 (05:49→21:58)
[2020-06-24 07:57] VITALS: BP 155/63
[2020-06-24] MEDS: ASPIRIN 325MG EC TABLET PO SCH (08:48)
[2020-06-24] MEDS: FAMOTIDINE 20MG TABLET PO SCH (08:48)
[2020-06-24] MEDS: DOCUSATE SODIUM SUGAR FREE 100MG/10ML UDC PO SCH (08:49)
[2020-06-24] MEDS: AMLODIPINE 10MG TABLET PO SCH (08:49)
[2020-06-24] MEDS: CLOPIDOGREL 75MG TABLET PO SCH (08:49)
[2020-06-24] MEDS: LOSARTAN POTASSIUM 50 MG TABLET PO SCH (08:49)
[2020-06-24] MEDS: HEPARIN 5000 UNITS/ML VIAL SUBCUT SCH ×2 (08:51→21:30)
[2020-06-24] MEDS: POLYETHYLENE GLYCOL 3350 (17GM) 1 DOSE PACK PO SCH (08:53)
[2020-06-24] MEDS: INSULIN LISPRO 100 UNITS/ML SUBCUT SCH ×4 (08:53→22:11)
[2020-06-24] MEDS: POVIDONE-IODINE 10% TOPICAL SOLN 240ML TOP SCH (09:41)
[2020-06-24] MEDS: CEFTRIAXONE 2 G in DEXTROSE 5% WATER 50 ML IV SCH (17:49)
[2020-06-24 20:00] VITALS: BP 124/48
[2020-06-24] MEDS: LACTULOSE 20G/30ML UDC PO SCH (21:00)
[2020-06-24] MEDS: ATORVASTATIN CALCIUM 40MG TABLET PO SCH (21:31)
[2020-06-24] MEDS: INSULIN GLARGINE UD 100 UNITS/ML SYR SUBCUT SCH (22:11)
[2020-06-25] MEDS: BLOOD SUGAR DIAGNOSTIC STRIP TEST SCH ×4 (04:57→21:58)
[2020-06-25] MEDS: METRONIDAZOLE 500MG TABLET PO SCH ×2 (04:59→17:09)
[2020-06-25] MEDS: HYDROCORTISONE 1% CREAM 30GM TOP SCH ×3 (04:59→21:48)
[2020-06-25] MEDS: INSULIN LISPRO 100 UNITS/ML SUBCUT SCH ×4 (05:04→22:18)
[2020-06-25 07:33] VITALS: BP 123/50
[2020-06-25] MEDS: DOCUSATE SODIUM SUGAR FREE 100MG/10ML UDC PO SCH ×2 (08:02→08:10)
[2020-06-25] MEDS: FAMOTIDINE 20MG TABLET PO SCH (08:02)
[2020-06-25] MEDS: CLOPIDOGREL 75MG TABLET PO SCH (08:02)
[2020-06-25] MEDS: AMLODIPINE 10MG TABLET PO SCH (08:02)
[2020-06-25] MEDS: LOSARTAN POTASSIUM 50 MG TABLET PO SCH (08:02)
[2020-06-25] MEDS: HEPARIN 5000 UNITS/ML VIAL SUBCUT SCH ×2 (08:03→21:48)
[2020-06-25] MEDS: POLYETHYLENE GLYCOL 3350 (17GM) 1 DOSE PACK PO SCH ×2 (08:03→08:10)
[2020-06-25] MEDS: ASPIRIN 325MG EC TABLET PO SCH (08:03)
[2020-06-25] MEDS: POVIDONE-IODINE 10% TOPICAL SOLN 240ML TOP SCH (08:05)
[2020-06-25] MEDS ORDERED: LIDOCAINE HCL 1% 20ML VIAL (Pyxis) INJ ONE (08:37)
[2020-06-25] MEDS: CEFTRIAXONE 2 G in DEXTROSE 5% WATER 50 ML IV SCH (17:09)
[2020-06-25 20:00] VITALS: BP 120/54
[2020-06-25] MEDS: LACTULOSE 20G/30ML UDC PO SCH (21:00)
[2020-06-25] MEDS: ATORVASTATIN CALCIUM 40MG TABLET PO SCH (21:48)
[2020-06-25] MEDS: INSULIN GLARGINE UD 100 UNITS/ML SYR SUBCUT SCH (22:10)
[2020-06-26] MEDS: BLOOD SUGAR DIAGNOSTIC STRIP TEST SCH ×4 (05:33→21:00)
[2020-06-26] MEDS: METRONIDAZOLE 500MG TABLET PO SCH ×2 (05:33→17:11)
[2020-06-26] MEDS: HYDROCORTISONE 1% CREAM 30GM TOP SCH ×3 (05:34→22:07)
[2020-06-26 07:58] VITALS: BP 123/52
[2020-06-26] MEDS: INSULIN LISPRO 100 UNITS/ML SUBCUT SCH ×4 (08:52→22:22)
[2020-06-26] MEDS: LOSARTAN POTASSIUM 50 MG TABLET PO SCH (09:20)
[2020-06-26] MEDS: ASPIRIN 325MG EC TABLET PO SCH (09:20)
[2020-06-26] MEDS: FAMOTIDINE 20MG TABLET PO SCH (09:20)
[2020-06-26] MEDS: HEPARIN 5000 UNITS/ML VIAL SUBCUT SCH ×2 (09:20→22:07)
[2020-06-26] MEDS: DOCUSATE SODIUM SUGAR FREE 100MG/10ML UDC PO SCH (09:20)
[2020-06-26] MEDS: CLOPIDOGREL 75MG TABLET PO SCH (09:20)
[2020-06-26] MEDS: ERGOCALCIFEROL 50000UNITS CAPSULE PO SCH (09:20)
[2020-06-26] MEDS: POLYETHYLENE GLYCOL 3350 (17GM) 1 DOSE PACK PO SCH (09:20)
[2020-06-26] MEDS: AMLODIPINE 10MG TABLET PO SCH (09:21)
[2020-06-26] MEDS: POVIDONE-IODINE 10% TOPICAL SOLN 240ML TOP SCH (09:22)
[2020-06-26 09:54] LABS: BASOPHILS % 1.9 % (0.0-2.0); EOSINOPHILS % 2.4 % (0.0-5.0); HEMATOCRIT. 33.5 % (42.0-52.0); HEMOGLOBIN. 11.6 g/dL (14.0-18.0); LYMPHOCYTES % 22.8 % (20.0-50.0); MEAN CORPUSCULAR HEMOGLOBIN 31.3 pg (28.0-32.0); MEAN CORPUSCULAR VOLUME 90.6 fL (80.0-94.0); MEAN PLATELET VOLUME 8.3 fl (7.4-10.4); MONOCYTES % 10.7 % (2.0-8.0); NEUTROPHILS % 62.2 % (40.0-76.0); PLATELET 249 x1000/uL (130-400); RED CELL DISTRIBUTION WIDTH 13.7 % (11.6-14.6)
[2020-06-26] MEDS: NITROGLYCERIN OINT 1GM/INCH UDPKT TD SCH ×2 (12:08→22:49)
[2020-06-26] MEDS: CEFTRIAXONE 2 G in DEXTROSE 5% WATER 50 ML IV SCH (17:12)
[2020-06-26 20:00] VITALS: BP 106/50
[2020-06-26] MEDS: LACTULOSE 20G/30ML UDC PO SCH (21:00)
[2020-06-26] MEDS: ATORVASTATIN CALCIUM 40MG TABLET PO SCH (22:07)
[2020-06-26] MEDS: INSULIN GLARGINE UD 100 UNITS/ML SYR SUBCUT SCH (22:22)
[2020-06-27] MEDS: METRONIDAZOLE 500MG TABLET PO SCH ×2 (06:02→17:24)
[2020-06-27] MEDS: BLOOD SUGAR DIAGNOSTIC STRIP TEST SCH ×4 (06:05→21:25)
[2020-06-27] MEDS: INSULIN LISPRO 100 UNITS/ML SUBCUT SCH ×4 (06:05→22:19)
[2020-06-27] MEDS: HYDROCORTISONE 1% CREAM 30GM TOP SCH ×3 (06:05→21:29)
[2020-06-27 08:02] VITALS: BP 123/42
[2020-06-27] MEDS: LOSARTAN POTASSIUM 50 MG TABLET PO SCH (08:59)
[2020-06-27] MEDS: CLOPIDOGREL 75MG TABLET PO SCH (08:59)
[2020-06-27] MEDS: AMLODIPINE 10MG TABLET PO SCH (08:59)
[2020-06-27] MEDS: ASPIRIN 325MG EC TABLET PO SCH (08:59)
[2020-06-27] MEDS: FAMOTIDINE 20MG TABLET PO SCH (08:59)
[2020-06-27] MEDS: HEPARIN 5000 UNITS/ML VIAL SUBCUT SCH ×2 (09:00→21:24)
[2020-06-27] MEDS: POLYETHYLENE GLYCOL 3350 (17GM) 1 DOSE PACK PO SCH (09:00)
[2020-06-27] MEDS: DOCUSATE SODIUM SUGAR FREE 100MG/10ML UDC PO SCH (09:00)
[2020-06-27] MEDS: POVIDONE-IODINE 10% TOPICAL SOLN 240ML TOP SCH (09:11)
[2020-06-27] MEDS: NITROGLYCERIN OINT 1GM/INCH UDPKT TD SCH ×2 (12:21→21:45)
[2020-06-27] MEDS: CEFTRIAXONE 2 G in DEXTROSE 5% WATER 50 ML IV SCH (17:24)
[2020-06-27 20:00] VITALS: BP 119/52
[2020-06-27] MEDS: LACTULOSE 20G/30ML UDC PO SCH (21:00)
[2020-06-27] MEDS: ATORVASTATIN CALCIUM 40MG TABLET PO SCH (21:24)
[2020-06-27] MEDS: INSULIN GLARGINE UD 100 UNITS/ML SYR SUBCUT SCH (22:19)
[2020-06-28] MEDS: METRONIDAZOLE 500MG TABLET PO SCH ×3 (05:36→21:36)
[2020-06-28] MEDS: HYDROCORTISONE 1% CREAM 30GM TOP SCH ×3 (05:36→21:35)
[2020-06-28] MEDS: BLOOD SUGAR DIAGNOSTIC STRIP TEST SCH ×4 (05:36→21:34)
[2020-06-28] MEDS: INSULIN LISPRO 100 UNITS/ML SUBCUT SCH ×4 (05:37→21:49)
[2020-06-28 07:57] VITALS: BP 127/58
[2020-06-28] MEDS: POLYETHYLENE GLYCOL 3350 (17GM) 1 DOSE PACK PO SCH (08:41)
[2020-06-28] MEDS: CLOPIDOGREL 75MG TABLET PO SCH (08:42)
[2020-06-28] MEDS: AMLODIPINE 10MG TABLET PO SCH (08:42)
[2020-06-28] MEDS: ASPIRIN 325MG EC TABLET PO SCH (08:42)
[2020-06-28] MEDS: LOSARTAN POTASSIUM 50 MG TABLET PO SCH (08:42)
[2020-06-28] MEDS: CYANOCOBALAMIN 1000MCG/ML VIAL IM SCH (08:43)
[2020-06-28] MEDS: HEPARIN 5000 UNITS/ML VIAL SUBCUT SCH ×2 (08:43→21:37)
[2020-06-28] MEDS: DOCUSATE SODIUM SUGAR FREE 100MG/10ML UDC PO SCH (08:57)
[2020-06-28] MEDS: POVIDONE-IODINE 10% TOPICAL SOLN 240ML TOP SCH (08:57)
[2020-06-28] MEDS: FAMOTIDINE 20MG TABLET PO SCH (09:05)
[2020-06-28] MEDS: NITROGLYCERIN OINT 1GM/INCH UDPKT TD SCH ×2 (11:13→21:37)
[2020-06-28] MEDS: CEFTRIAXONE 2 G in DEXTROSE 5% WATER 50 ML IV SCH (17:01)
[2020-06-28 20:00] VITALS: BP 133/51
[2020-06-28] MEDS: LACTULOSE 20G/30ML UDC PO SCH (21:36)
[2020-06-28] MEDS: ATORVASTATIN CALCIUM 40MG TABLET PO SCH (21:36)
[2020-06-28] MEDS: INSULIN GLARGINE UD 100 UNITS/ML SYR SUBCUT SCH (21:50)
[2020-06-29] MEDS: METRONIDAZOLE 500MG TABLET PO SCH (05:20)
[2020-06-29] MEDS: HYDROCORTISONE 1% CREAM 30GM TOP SCH ×3 (05:20→22:00)
[2020-06-29] MEDS: BLOOD SUGAR DIAGNOSTIC STRIP TEST SCH ×4 (05:21→21:00)
[2020-06-29] MEDS: INSULIN LISPRO 100 UNITS/ML SUBCUT SCH ×4 (05:22→22:11)
[2020-06-29 07:12] LABS: BASOPHILS % 1.4 % (0.0-2.0); EOSINOPHILS % 4.4 % (0.0-5.0); HEMATOCRIT. 31.7 % (42.0-52.0); HEMOGLOBIN. 10.9 g/dL (14.0-18.0); LYMPHOCYTES % 30.5 % (20.0-50.0); MEAN CORPUSCULAR HEMOGLOBIN 30.8 pg (28.0-32.0); MEAN CORPUSCULAR VOLUME 89.6 fL (80.0-94.0); MEAN PLATELET VOLUME 9.1 fl (7.4-10.4); MONOCYTES % 14.1 % (2.0-8.0); NEUTROPHILS % 49.6 % (40.0-76.0); PLATELET 251 x1000/uL (130-400); RED BLOOD CELL COUNT 3.54 mill/uL (4.7-6.1); RED CELL DISTRIBUTION WIDTH 13.3 % (11.6-14.6)
[2020-06-29 07:18] LABS: CHLORIDE 108 mEq/L (98-107)
[2020-06-29 08:00] VITALS: BP 151/55
[2020-06-29] MEDS: DOCUSATE SODIUM SUGAR FREE 100MG/10ML UDC PO SCH (09:00)
[2020-06-29] MEDS: POLYETHYLENE GLYCOL 3350 (17GM) 1 DOSE PACK PO SCH (09:09)
[2020-06-29] MEDS: AMLODIPINE 10MG TABLET PO SCH (09:11)
[2020-06-29] MEDS: LOSARTAN POTASSIUM 50 MG TABLET PO SCH (09:11)
[2020-06-29] MEDS: ASPIRIN 325MG EC TABLET PO SCH (09:11)
[2020-06-29] MEDS: CLOPIDOGREL 75MG TABLET PO SCH (09:11)
[2020-06-29] MEDS: HEPARIN 5000 UNITS/ML VIAL SUBCUT SCH ×2 (09:11→21:59)
[2020-06-29] MEDS: FAMOTIDINE 20MG TABLET PO SCH (09:13)
[2020-06-29] MEDS: POVIDONE-IODINE 10% TOPICAL SOLN 240ML TOP SCH (09:13)
[2020-06-29] MEDS: NITROGLYCERIN OINT 1GM/INCH UDPKT TD SCH ×2 (10:38→22:01)
[2020-06-29] MEDS: CEFTRIAXONE 2 G in DEXTROSE 5% WATER 50 ML IV SCH (17:41)
[2020-06-29 20:00] VITALS: BP 118/62
[2020-06-29] MEDS: LACTULOSE 20G/30ML UDC PO SCH (21:00)
[2020-06-29] MEDS: ATORVASTATIN CALCIUM 40MG TABLET PO SCH (22:00)
[2020-06-29] MEDS: INSULIN GLARGINE UD 100 UNITS/ML SYR SUBCUT SCH (22:12)
[2020-06-30] MEDS: BLOOD SUGAR DIAGNOSTIC STRIP TEST SCH ×4 (05:31→21:48)
[2020-06-30] MEDS: INSULIN LISPRO 100 UNITS/ML SUBCUT SCH ×4 (05:32→22:04)
[2020-06-30] MEDS: METRONIDAZOLE 500MG TABLET PO SCH ×2 (05:33→21:52)
[2020-06-30] MEDS: HYDROCORTISONE 1% CREAM 30GM TOP SCH ×3 (05:33→21:51)
[2020-06-30 08:26] VITALS: BP 133/63
[2020-06-30] MEDS: DOCUSATE SODIUM SUGAR FREE 100MG/10ML UDC PO SCH (09:00)
[2020-06-30] MEDS: POLYETHYLENE GLYCOL 3350 (17GM) 1 DOSE PACK PO SCH (09:00)
[2020-06-30] MEDS: ASPIRIN 325MG EC TABLET PO SCH (09:46)
[2020-06-30] MEDS: CLOPIDOGREL 75MG TABLET PO SCH (09:46)
[2020-06-30] MEDS: AMLODIPINE 10MG TABLET PO SCH (09:46)
[2020-06-30] MEDS: FAMOTIDINE 20MG TABLET PO SCH (09:46)
[2020-06-30] MEDS: LOSARTAN POTASSIUM 50 MG TABLET PO SCH (09:46)
[2020-06-30] MEDS: HEPARIN 5000 UNITS/ML VIAL SUBCUT SCH ×2 (09:46→21:53)
[2020-06-30] MEDS: NITROGLYCERIN OINT 1GM/INCH UDPKT TD SCH ×2 (11:24→21:54)
[2020-06-30] MEDS: CEFTRIAXONE 2 G in DEXTROSE 5% WATER 50 ML IV SCH (17:05)
[2020-06-30 20:00] VITALS: BP 108/50
[2020-06-30] MEDS: LACTULOSE 20G/30ML UDC PO SCH (21:00)
[2020-06-30] MEDS: ATORVASTATIN CALCIUM 40MG TABLET PO SCH (21:54)
[2020-06-30] MEDS: INSULIN GLARGINE UD 100 UNITS/ML SYR SUBCUT SCH (22:05)
[2020-07-01] MEDS: INSULIN LISPRO 100 UNITS/ML SUBCUT SCH ×4 (05:32→21:00)
[2020-07-01] MEDS: BLOOD SUGAR DIAGNOSTIC STRIP TEST SCH ×4 (05:32→21:00)
[2020-07-01] MEDS: HYDROCORTISONE 1% CREAM 30GM TOP SCH ×3 (06:37→22:18)
[2020-07-01 08:10] VITALS: BP 117/53
[2020-07-01] MEDS: DOCUSATE SODIUM SUGAR FREE 100MG/10ML UDC PO SCH (09:00)
[2020-07-01] MEDS: POLYETHYLENE GLYCOL 3350 (17GM) 1 DOSE PACK PO SCH (09:00)
[2020-07-01] MEDS: METRONIDAZOLE 500MG TABLET PO SCH ×2 (09:35→22:19)
[2020-07-01] MEDS: ASPIRIN 325MG EC TABLET PO SCH (09:35)
[2020-07-01] MEDS: LOSARTAN POTASSIUM 50 MG TABLET PO SCH (09:40)
[2020-07-01] MEDS: CLOPIDOGREL 75MG TABLET PO SCH (09:40)
[2020-07-01] MEDS: FAMOTIDINE 20MG TABLET PO SCH (09:40)
[2020-07-01] MEDS: AMLODIPINE 10MG TABLET PO SCH (09:40)
[2020-07-01] MEDS: NITROGLYCERIN OINT 1GM/INCH UDPKT TD SCH ×2 (09:41→22:18)
[2020-07-01] MEDS: HEPARIN 5000 UNITS/ML VIAL SUBCUT SCH ×2 (09:41→22:19)
[2020-07-01] MEDS: POVIDONE-IODINE 10% TOPICAL SOLN 240ML TOP SCH ×2 (12:59→17:17)
[2020-07-01] MEDS: CEFTRIAXONE 2 G in DEXTROSE 5% WATER 50 ML IV SCH (17:14)
[2020-07-01 20:00] VITALS: BP 112/52
[2020-07-01] MEDS: LACTULOSE 20G/30ML UDC PO SCH (21:00)
[2020-07-01] MEDS: ATORVASTATIN CALCIUM 40MG TABLET PO SCH (22:20)
[2020-07-01] MEDS: INSULIN GLARGINE UD 100 UNITS/ML SYR SUBCUT SCH (22:30)
[2020-07-02] MEDS: HYDROCORTISONE 1% CREAM 30GM TOP SCH ×3 (05:15→21:44)
[2020-07-02] MEDS: BLOOD SUGAR DIAGNOSTIC STRIP TEST SCH ×4 (06:11→20:37)
[2020-07-02] MEDS: INSULIN LISPRO 100 UNITS/ML SUBCUT SCH ×4 (06:11→21:46)
[2020-07-02] MEDS: POLYETHYLENE GLYCOL 3350 (17GM) 1 DOSE PACK PO SCH (09:00)
[2020-07-02] MEDS: DOCUSATE SODIUM SUGAR FREE 100MG/10ML UDC PO SCH (09:00)
[2020-07-02] MEDS: FAMOTIDINE 20MG TABLET PO SCH (09:21)
[2020-07-02] MEDS: METRONIDAZOLE 500MG TABLET PO SCH ×2 (09:21→20:37)
[2020-07-02] MEDS: LOSARTAN POTASSIUM 50 MG TABLET PO SCH (09:22)
[2020-07-02] MEDS: ASPIRIN 325MG EC TABLET PO SCH (09:22)
[2020-07-02] MEDS: CLOPIDOGREL 75MG TABLET PO SCH (09:22)
[2020-07-02] MEDS: AMLODIPINE 10MG TABLET PO SCH (09:22)
[2020-07-02] MEDS: POVIDONE-IODINE 10% TOPICAL SOLN 240ML TOP SCH (09:23)
[2020-07-02] MEDS: HEPARIN 5000 UNITS/ML VIAL SUBCUT SCH ×2 (09:25→20:37)
[2020-07-02] MEDS: NITROGLYCERIN OINT 1GM/INCH UDPKT TD SCH ×2 (11:49→21:45)
[2020-07-02] MEDS: CEFTRIAXONE 2 G in DEXTROSE 5% WATER 50 ML IV SCH (17:24)
[2020-07-02 20:00] VITALS: BP 112/45
[2020-07-02] MEDS: LACTULOSE 20G/30ML UDC PO SCH (20:37)
[2020-07-02] MEDS: ATORVASTATIN CALCIUM 40MG TABLET PO SCH (20:37)
[2020-07-02] MEDS: INSULIN GLARGINE UD 100 UNITS/ML SYR SUBCUT SCH (21:46)
[2020-07-03] MEDS: HYDROCORTISONE 1% CREAM 30GM TOP SCH ×3 (05:38→22:07)
[2020-07-03] MEDS: INSULIN LISPRO 100 UNITS/ML SUBCUT SCH ×4 (05:38→21:00)
[2020-07-03] MEDS: BLOOD SUGAR DIAGNOSTIC STRIP TEST SCH ×4 (05:38→21:00)
[2020-07-03 08:00] VITALS: BP 135/70
[2020-07-03] MEDS: POLYETHYLENE GLYCOL 3350 (17GM) 1 DOSE PACK PO SCH (09:00)
[2020-07-03] MEDS: DOCUSATE SODIUM SUGAR FREE 100MG/10ML UDC PO SCH (09:00)
[2020-07-03] MEDS: FAMOTIDINE 20MG TABLET PO SCH (09:09)
[2020-07-03] MEDS: CLOPIDOGREL 75MG TABLET PO SCH (09:09)
[2020-07-03] MEDS: ASPIRIN 325MG EC TABLET PO SCH (09:09)
[2020-07-03] MEDS: LOSARTAN POTASSIUM 50 MG TABLET PO SCH (09:09)
[2020-07-03] MEDS: ERGOCALCIFEROL 50000UNITS CAPSULE PO SCH (09:09)
[2020-07-03] MEDS: METRONIDAZOLE 500MG TABLET PO SCH ×2 (09:09→22:06)
[2020-07-03] MEDS: AMLODIPINE 10MG TABLET PO SCH (09:10)
[2020-07-03] MEDS: HEPARIN 5000 UNITS/ML VIAL SUBCUT SCH ×2 (09:22→22:07)
[2020-07-03] MEDS: POVIDONE-IODINE 10% TOPICAL SOLN 240ML TOP SCH (09:28)
[2020-07-03] MEDS: NITROGLYCERIN OINT 1GM/INCH UDPKT TD SCH ×2 (11:43→22:08)
[2020-07-03 12:36] LABS: BASOPHILS % 1.5 % (0.0-2.0); EOSINOPHILS % 3.2 % (0.0-5.0); HEMATOCRIT. 32.9 % (42.0-52.0); HEMOGLOBIN. 11.2 g/dL (14.0-18.0); LYMPHOCYTES % 24.8 % (20.0-50.0); MEAN CORPUSCULAR HEMOGLOBIN 31.1 pg (28.0-32.0); MEAN CORPUSCULAR VOLUME 91.6 fL (80.0-94.0); MEAN PLATELET VOLUME 8.8 fl (7.4-10.4); MONOCYTES % 13.9 % (2.0-8.0); NEUTROPHILS % 56.6 % (40.0-76.0); PLATELET 229 x1000/uL (130-400); RED BLOOD CELL COUNT 3.59 mill/uL (4.7-6.1); RED CELL DISTRIBUTION WIDTH 13.9 % (11.6-14.6)
[2020-07-03] MEDS: CEFTRIAXONE 2 G in DEXTROSE 5% WATER 50 ML IV SCH (18:36)
[2020-07-03] MEDS: LACTULOSE 20G/30ML UDC PO SCH (21:00)
[2020-07-03 21:43] VITALS: BP 120/47
[2020-07-03] MEDS: ATORVASTATIN CALCIUM 40MG TABLET PO SCH (22:06)
[2020-07-03] MEDS: INSULIN GLARGINE UD 100 UNITS/ML SYR SUBCUT SCH (22:26)
[2020-07-04] MEDS: BLOOD SUGAR DIAGNOSTIC STRIP TEST SCH ×2 (05:20→21:25)
[2020-07-04] MEDS: HYDROCORTISONE 1% CREAM 30GM TOP SCH ×3 (05:20→21:30)
[2020-07-04] MEDS: INSULIN LISPRO 100 UNITS/ML SUBCUT SCH ×2 (05:21→21:29)
[2020-07-04 06:35] LABS: BASOPHILS % 1.5 % (0.0-2.0); EOSINOPHILS % 5.8 % (0.0-5.0); HEMATOCRIT. 31.4 % (42.0-52.0); HEMOGLOBIN. 10.7 g/dL (14.0-18.0); LYMPHOCYTES % 31.2 % (20.0-50.0); MEAN CORPUSCULAR HEMOGLOBIN 30.9 pg (28.0-32.0); MEAN CORPUSCULAR VOLUME 90.9 fL (80.0-94.0); MEAN PLATELET VOLUME 8.8 fl (7.4-10.4); MONOCYTES % 14.7 % (2.0-8.0); NEUTROPHILS % 46.8 % (40.0-76.0); PLATELET 225 x1000/uL (130-400); RED BLOOD CELL COUNT 3.46 mill/uL (4.7-6.1); RED CELL DISTRIBUTION WIDTH 13.7 % (11.6-14.6)
[2020-07-04 08:30] VITALS: BP 129/57
[2020-07-04] MEDS: HEPARIN 5000 UNITS/ML VIAL SUBCUT SCH ×2 (08:43→21:25)
[2020-07-04] MEDS: ASPIRIN 325MG EC TABLET PO SCH (08:43)
[2020-07-04] MEDS: LOSARTAN POTASSIUM 50 MG TABLET PO SCH (08:43)
[2020-07-04] MEDS: FAMOTIDINE 20MG TABLET PO SCH (08:43)
[2020-07-04] MEDS: METRONIDAZOLE 500MG TABLET PO SCH ×2 (08:43→21:24)
[2020-07-04] MEDS: CLOPIDOGREL 75MG TABLET PO SCH (08:43)
[2020-07-04] MEDS: POVIDONE-IODINE 10% TOPICAL SOLN 240ML TOP SCH (08:44)
[2020-07-04] MEDS: AMLODIPINE 10MG TABLET PO SCH (08:44)
[2020-07-04] MEDS: DOCUSATE SODIUM SUGAR FREE 100MG/10ML UDC PO SCH (08:45)
[2020-07-04] MEDS: NITROGLYCERIN OINT 1GM/INCH UDPKT TD SCH ×2 (10:11→21:45)
[2020-07-04] MEDS: CEFTRIAXONE 2 G in DEXTROSE 5% WATER 50 ML IV SCH (17:05)
[2020-07-04] MEDS ORDERED: SENNOSIDES/DOCUSATE SOD 8.6/50MG TABLET PO PRN (19:30)
[2020-07-04] MEDS ORDERED: ACETAMINOPHEN 325MG TABLET PO PRN (19:30)
[2020-07-04] MEDS ORDERED: ONDANSETRON 4MG ODT PO PRN (19:30)
[2020-07-04] MEDS ORDERED: DEXTROSE 50% WATER 50ML SYRINGE IV PRN (19:30)
[2020-07-04 20:00] VITALS: BP 119/55
[2020-07-04] MEDS: LACTULOSE 20G/30ML UDC PO SCH (21:00)
[2020-07-04] MEDS: ATORVASTATIN CALCIUM 40MG TABLET PO SCH (21:24)
[2020-07-04] MEDS: INSULIN GLARGINE UD 100 UNITS/ML SYR SUBCUT SCH (21:26)
[2020-07-05] MEDS: HYDROCORTISONE 1% CREAM 30GM TOP SCH ×3 (06:18→22:05)
[2020-07-05] MEDS: BLOOD SUGAR DIAGNOSTIC STRIP TEST SCH ×4 (06:18→21:00)
[2020-07-05] MEDS: INSULIN LISPRO 100 UNITS/ML SUBCUT SCH ×4 (06:18→21:00)
[2020-07-05 07:57] VITALS: BP 134/59
[2020-07-05] MEDS: HEPARIN 5000 UNITS/ML VIAL SUBCUT SCH ×2 (08:39→22:04)
[2020-07-05] MEDS: FAMOTIDINE 20MG TABLET PO SCH (08:39)
[2020-07-05] MEDS: ASPIRIN 325MG EC TABLET PO SCH (08:39)
[2020-07-05] MEDS: CYANOCOBALAMIN 1000MCG/ML VIAL IM SCH (08:39)
[2020-07-05] MEDS: LOSARTAN POTASSIUM 50 MG TABLET PO SCH (08:40)
[2020-07-05] MEDS: METRONIDAZOLE 500MG TABLET PO SCH ×2 (08:40→22:03)
[2020-07-05] MEDS: AMLODIPINE 10MG TABLET PO SCH (08:40)
[2020-07-05] MEDS: CLOPIDOGREL 75MG TABLET PO SCH (08:40)
[2020-07-05] MEDS: POVIDONE-IODINE 10% TOPICAL SOLN 240ML TOP SCH (08:41)
[2020-07-05] MEDS: POLYETHYLENE GLYCOL 3350 (17GM) 1 DOSE PACK PO SCH (08:47)
[2020-07-05] MEDS: DOCUSATE SODIUM SUGAR FREE 100MG/10ML UDC PO SCH (08:47)
[2020-07-05] MEDS: NITROGLYCERIN OINT 1GM/INCH UDPKT TD SCH ×2 (09:54→22:03)
[2020-07-05] MEDS: CEFTRIAXONE 2 G in DEXTROSE 5% WATER 50 ML IV SCH (17:06)
[2020-07-05 20:00] VITALS: BP 115/54
[2020-07-05] MEDS ORDERED: ATORVASTATIN CALCIUM 40MG TABLET PO SCH (21:00)
[2020-07-05] MEDS: LACTULOSE 20G/30ML UDC PO SCH (21:00)
[2020-07-05] MEDS ORDERED: INSULIN GLARGINE UD 100 UNITS/ML SYR SUBCUT SCH (22:00)
[2020-07-05] MEDS: ATORVASTATIN CALCIUM 40MG TABLET PO SCH (22:03)
[2020-07-05] MEDS: INSULIN GLARGINE UD 100 UNITS/ML SYR SUBCUT SCH (22:20)
[2020-07-06] MEDS: HYDROCORTISONE 1% CREAM 30GM TOP SCH ×3 (05:15→22:34)
[2020-07-06] MEDS: BLOOD SUGAR DIAGNOSTIC STRIP TEST SCH ×4 (05:15→21:00)
[2020-07-06] MEDS: INSULIN LISPRO 100 UNITS/ML SUBCUT SCH ×4 (06:35→21:00)
[2020-07-06 08:00] VITALS: BP 141/59
[2020-07-06] MEDS: POLYETHYLENE GLYCOL 3350 (17GM) 1 DOSE PACK PO SCH (09:00)
[2020-07-06] MEDS: DOCUSATE SODIUM SUGAR FREE 100MG/10ML UDC PO SCH (09:00)
[2020-07-06] MEDS: FAMOTIDINE 20MG TABLET PO SCH (09:37)
[2020-07-06] MEDS: CLOPIDOGREL 75MG TABLET PO SCH (09:37)
[2020-07-06] MEDS: LOSARTAN POTASSIUM 50 MG TABLET PO SCH (09:38)
[2020-07-06] MEDS: AMLODIPINE 10MG TABLET PO SCH (09:38)
[2020-07-06] MEDS: ASPIRIN 325MG EC TABLET PO SCH (09:38)
[2020-07-06] MEDS: HEPARIN 5000 UNITS/ML VIAL SUBCUT SCH ×2 (09:39→22:33)
[2020-07-06] MEDS: METRONIDAZOLE 500MG TABLET PO SCH ×2 (09:39→22:34)
[2020-07-06] MEDS: POVIDONE-IODINE 10% TOPICAL SOLN 240ML TOP SCH (09:44)
[2020-07-06] MEDS: NITROGLYCERIN OINT 1GM/INCH UDPKT TD SCH ×2 (12:00→22:33)
[2020-07-06] MEDS: CEFTRIAXONE 2 G in DEXTROSE 5% WATER 50 ML IV SCH (18:14)
[2020-07-06 20:00] VITALS: BP 130/57
[2020-07-06] MEDS: LACTULOSE 20G/30ML UDC PO SCH (21:00)
[2020-07-06] MEDS: ATORVASTATIN CALCIUM 40MG TABLET PO SCH (22:34)
[2020-07-06] MEDS: INSULIN GLARGINE UD 100 UNITS/ML SYR SUBCUT SCH (22:41)
[2020-07-07] MEDS: INSULIN LISPRO 100 UNITS/ML SUBCUT SCH ×4 (05:39→22:37)
[2020-07-07] MEDS: BLOOD SUGAR DIAGNOSTIC STRIP TEST SCH ×4 (05:39→21:00)
[2020-07-07] MEDS: HYDROCORTISONE 1% CREAM 30GM TOP SCH ×3 (05:41→22:24)
[2020-07-07 06:48] LABS: HEMATOCRIT. 31.8 % (42.0-52.0); MEAN CORPUSCULAR HEMOGLOBIN 31.4 pg (28.0-32.0); MEAN CORPUSCULAR VOLUME 90.5 fL (80.0-94.0); MEAN PLATELET VOLUME 8.4 fl (7.4-10.4); PLATELET 208 x1000/uL (130-400); RED BLOOD CELL COUNT 3.51 mill/uL (4.7-6.1); RED CELL DISTRIBUTION WIDTH 13.7 % (11.6-14.6)
[2020-07-07 08:54] VITALS: BP 138/66
[2020-07-07] MEDS: ASPIRIN 325MG EC TABLET PO SCH (08:56)
[2020-07-07] MEDS: FAMOTIDINE 20MG TABLET PO SCH (08:56)
[2020-07-07] MEDS: HEPARIN 5000 UNITS/ML VIAL SUBCUT SCH ×2 (08:56→22:25)
[2020-07-07] MEDS: AMLODIPINE 10MG TABLET PO SCH (08:56)
[2020-07-07] MEDS: CLOPIDOGREL 75MG TABLET PO SCH (08:56)
[2020-07-07] MEDS: POLYETHYLENE GLYCOL 3350 (17GM) 1 DOSE PACK PO SCH (08:57)
[2020-07-07] MEDS: LOSARTAN POTASSIUM 50 MG TABLET PO SCH (08:57)
[2020-07-07] MEDS: METRONIDAZOLE 500MG TABLET PO SCH ×2 (08:57→22:25)
[2020-07-07] MEDS: DOCUSATE SODIUM SUGAR FREE 100MG/10ML UDC PO SCH (08:57)
[2020-07-07] MEDS: POVIDONE-IODINE 10% TOPICAL SOLN 240ML TOP SCH (09:01)
[2020-07-07] MEDS: NITROGLYCERIN OINT 1GM/INCH UDPKT TD SCH ×2 (10:07→22:24)
[2020-07-07 15:32] LABS: PLATELET ESTIMATE NORMAL
[2020-07-07] MEDS: CEFTRIAXONE 2 G in DEXTROSE 5% WATER 50 ML IV SCH (17:09)
[2020-07-07 20:00] VITALS: BP 112/50
[2020-07-07] MEDS: LACTULOSE 20G/30ML UDC PO SCH (21:00)
[2020-07-07] MEDS: ATORVASTATIN CALCIUM 40MG TABLET PO SCH (22:25)
[2020-07-07] MEDS: INSULIN GLARGINE UD 100 UNITS/ML SYR SUBCUT SCH (22:38)
[2020-07-08] MEDS: HYDROCORTISONE 1% CREAM 30GM TOP SCH ×3 (06:02→21:24)
[2020-07-08] MEDS: INSULIN LISPRO 100 UNITS/ML SUBCUT SCH ×4 (06:02→21:41)
[2020-07-08] MEDS: BLOOD SUGAR DIAGNOSTIC STRIP TEST SCH ×4 (06:02→21:26)
[2020-07-08 07:46] VITALS: BP 127/50
[2020-07-08] MEDS: METRONIDAZOLE 500MG TABLET PO SCH ×2 (08:15→21:25)
[2020-07-08] MEDS: LOSARTAN POTASSIUM 50 MG TABLET PO SCH (08:15)
[2020-07-08] MEDS: AMLODIPINE 10MG TABLET PO SCH (08:15)
[2020-07-08] MEDS: ASPIRIN 325MG EC TABLET PO SCH (08:15)
[2020-07-08] MEDS: CLOPIDOGREL 75MG TABLET PO SCH (08:15)
[2020-07-08] MEDS: FAMOTIDINE 20MG TABLET PO SCH (08:15)
[2020-07-08] MEDS: POVIDONE-IODINE 10% TOPICAL SOLN 240ML TOP SCH (08:15)
[2020-07-08] MEDS: POLYETHYLENE GLYCOL 3350 (17GM) 1 DOSE PACK PO SCH (08:16)
[2020-07-08] MEDS: DOCUSATE SODIUM SUGAR FREE 100MG/10ML UDC PO SCH (08:16)
[2020-07-08] MEDS: HEPARIN 5000 UNITS/ML VIAL SUBCUT SCH ×2 (08:16→21:24)
[2020-07-08] MEDS: NITROGLYCERIN OINT 1GM/INCH UDPKT TD SCH ×2 (09:48→21:41)
[2020-07-08] MEDS: CEFTRIAXONE 2 G in DEXTROSE 5% WATER 50 ML IV SCH (17:07)
[2020-07-08 20:00] VITALS: BP 105/44
[2020-07-08] MEDS: LACTULOSE 20G/30ML UDC PO SCH (21:00)
[2020-07-08] MEDS: ATORVASTATIN CALCIUM 40MG TABLET PO SCH (21:25)
[2020-07-08] MEDS: INSULIN GLARGINE UD 100 UNITS/ML SYR SUBCUT SCH (21:42)
[2020-07-09] MEDS: HYDROCORTISONE 1% CREAM 30GM TOP SCH ×2 (05:49→14:15)
[2020-07-09] MEDS: BLOOD SUGAR DIAGNOSTIC STRIP TEST SCH ×4 (05:54→21:11)
[2020-07-09] MEDS: INSULIN LISPRO 100 UNITS/ML SUBCUT SCH ×4 (06:22→21:11)
[2020-07-09 07:03] LABS: HEMATOCRIT. 31.3 % (42.0-52.0); MEAN CORPUSCULAR HEMOGLOBIN 31.7 pg (28.0-32.0); MEAN CORPUSCULAR VOLUME 90.2 fL (80.0-94.0); MEAN PLATELET VOLUME 8.3 fl (7.4-10.4); PLATELET 231 x1000/uL (130-400); RED BLOOD CELL COUNT 3.47 mill/uL (4.7-6.1); RED CELL DISTRIBUTION WIDTH 13.6 % (11.6-14.6)
[2020-07-09 08:30] VITALS: BP 113/50
[2020-07-09] MEDS: LOSARTAN POTASSIUM 50 MG TABLET PO SCH (09:00)
[2020-07-09] MEDS: POLYETHYLENE GLYCOL 3350 (17GM) 1 DOSE PACK PO SCH ×2 (09:00→11:22)
[2020-07-09] MEDS: DOCUSATE SODIUM SUGAR FREE 100MG/10ML UDC PO SCH (09:00)
[2020-07-09] MEDS: ASPIRIN 325MG EC TABLET PO SCH (11:21)
[2020-07-09] MEDS: METRONIDAZOLE 500MG TABLET PO SCH ×2 (11:22→21:10)
[2020-07-09] MEDS: AMLODIPINE 10MG TABLET PO SCH (11:23)
[2020-07-09] MEDS: FAMOTIDINE 20MG TABLET PO SCH (11:24)
[2020-07-09] MEDS: HEPARIN 5000 UNITS/ML VIAL SUBCUT SCH ×2 (11:24→21:10)
[2020-07-09] MEDS: CLOPIDOGREL 75MG TABLET PO SCH (11:24)
[2020-07-09] MEDS: NITROGLYCERIN OINT 1GM/INCH UDPKT TD SCH ×2 (11:25→23:04)
[2020-07-09] MEDS: POVIDONE-IODINE 10% TOPICAL SOLN 240ML TOP SCH (11:36)
[2020-07-09] MEDS: CEFTRIAXONE 2 G in DEXTROSE 5% WATER 50 ML IV SCH (17:47)
[2020-07-09 17:55] LABS: PLATELET ESTIMATE NORMAL
[2020-07-09 20:00] VITALS: BP 130/56
[2020-07-09] MEDS: LACTULOSE 20G/30ML UDC PO SCH (21:00)
[2020-07-09] MEDS: ATORVASTATIN CALCIUM 40MG TABLET PO SCH (21:10)
[2020-07-09] MEDS: INSULIN GLARGINE UD 100 UNITS/ML SYR SUBCUT SCH (22:03)
[2020-07-10] MEDS: BLOOD SUGAR DIAGNOSTIC STRIP TEST SCH ×4 (06:09→20:25)
[2020-07-10 07:54] VITALS: BP 131/53
[2020-07-10] MEDS: POLYETHYLENE GLYCOL 3350 (17GM) 1 DOSE PACK PO SCH (09:00)
[2020-07-10] MEDS: INSULIN LISPRO 100 UNITS/ML SUBCUT SCH ×4 (09:00→21:54)
[2020-07-10] MEDS: DOCUSATE SODIUM SUGAR FREE 100MG/10ML UDC PO SCH (10:24)
[2020-07-10] MEDS: LOSARTAN POTASSIUM 50 MG TABLET PO SCH (10:25)
[2020-07-10] MEDS: ASPIRIN 325MG EC TABLET PO SCH (10:26)
[2020-07-10] MEDS: METRONIDAZOLE 500MG TABLET PO SCH ×2 (10:26→20:25)
[2020-07-10] MEDS: AMLODIPINE 10MG TABLET PO SCH (10:28)
[2020-07-10] MEDS: ERGOCALCIFEROL 50000UNITS CAPSULE PO SCH (10:29)
[2020-07-10] MEDS: CLOPIDOGREL 75MG TABLET PO SCH (10:29)
[2020-07-10] MEDS: FAMOTIDINE 20MG TABLET PO SCH (10:29)
[2020-07-10] MEDS: HEPARIN 5000 UNITS/ML VIAL SUBCUT SCH ×2 (10:30→20:25)
[2020-07-10] MEDS: NITROGLYCERIN OINT 1GM/INCH UDPKT TD SCH ×2 (10:49→21:50)
[2020-07-10] MEDS: POVIDONE-IODINE 10% TOPICAL SOLN 240ML TOP SCH (10:50)
[2020-07-10] MEDS ORDERED: LIP40 PO (10:56)
[2020-07-10] MEDS ORDERED: LANTUSUD SUBCUT (10:56)
[2020-07-10] MEDS ORDERED: AMLO10TA80 PO (10:56)
[2020-07-10] MEDS ORDERED: LOSA50TA3 PO (10:56)
[2020-07-10] MEDS ORDERED: POLY17PO3 PO (10:56)
[2020-07-10] MEDS ORDERED: ASPI-1160 PO (10:56)
[2020-07-10] MEDS ORDERED: ALTEPLASE 2MG/VIAL ITC NR (12:00)
[2020-07-10] MEDS: CEFTRIAXONE 2 G in DEXTROSE 5% WATER 50 ML IV SCH (18:22)
[2020-07-10 19:00] VITALS: BP 115/52
[2020-07-10] MEDS: ATORVASTATIN CALCIUM 40MG TABLET PO SCH (20:25)
[2020-07-10] MEDS: LACTULOSE 20G/30ML UDC PO SCH (20:25)
[2020-07-10] MEDS: INSULIN GLARGINE UD 100 UNITS/ML SYR SUBCUT SCH (21:54)
[2020-07-11] MEDS: INSULIN LISPRO 100 UNITS/ML SUBCUT SCH ×2 (05:59→12:41)
[2020-07-11] MEDS: BLOOD SUGAR DIAGNOSTIC STRIP TEST SCH ×2 (05:59→12:08)
[2020-07-11 07:59] VITALS: BP 142/62
[2020-07-11] MEDS: DOCUSATE SODIUM SUGAR FREE 100MG/10ML UDC PO SCH (09:00)
[2020-07-11] MEDS: POLYETHYLENE GLYCOL 3350 (17GM) 1 DOSE PACK PO SCH (09:00)
[2020-07-11] MEDS: LOSARTAN POTASSIUM 50 MG TABLET PO SCH (09:14)
[2020-07-11] MEDS: AMLODIPINE 10MG TABLET PO SCH (09:14)
[2020-07-11] MEDS: CLOPIDOGREL 75MG TABLET PO SCH (09:14)
[2020-07-11] MEDS: ASPIRIN 325MG EC TABLET PO SCH (09:14)
[2020-07-11] MEDS: HEPARIN 5000 UNITS/ML VIAL SUBCUT SCH (09:16)
[2020-07-11] MEDS: FAMOTIDINE 20MG TABLET PO SCH (09:19)
[2020-07-11] MEDS: NITROGLYCERIN OINT 1GM/INCH UDPKT TD SCH (12:07)
[2020-07-11] MEDS: POVIDONE-IODINE 10% TOPICAL SOLN 240ML TOP SCH (12:15)
[2020-07-11 12:51] VITALS: BP 142/62
[2020-07-11] MEDS: CEFTRIAXONE 2 G in DEXTROSE 5% WATER 50 ML IV SCH (15:48)
== END 2020-07-11 17:50 | disposition home health service (06) | DRG 981 ==
PROVIDERS: ADMIT Physical Medicine & Rehabilitation Spinal Cord Injury Medicine; ATTEND Specialist
PROC: 0QBQ0ZZ Excision of Right Toe Phalanx, Open Approach (ICD-10-PCS; principal; 2020-06-11)
PROC: B548ZZA Ultrasonography of Superior Vena Cava, Guidance (ICD-10-PCS; 2020-06-25)
PROC: 02HV33Z Insertion of Infusion Device into Superior Vena Cava, Percutaneous Approach (ICD-10-PCS; 2020-06-25)
PROC: B5181ZA Fluoroscopy of Superior Vena Cava using Low Osmolar Contrast, Guidance (ICD-10-PCS; 2020-06-25)
DX: I69.354 Hemiplegia and hemiparesis following cerebral infarction affecting left non-dominant side (principal); I63.9 Cerebral infarction, unspecified; R41.4 Neurologic neglect syndrome; E44.0 Moderate protein-calorie malnutrition; M86.8X7 Other osteomyelitis, ankle and foot; L03.115 Cellulitis of right lower limb; N17.9 Acute kidney failure, unspecified; R13.10 Dysphagia, unspecified; N18.9 Chronic kidney disease, unspecified; D64.9 Anemia, unspecified; E11.22 Type 2 diabetes mellitus with diabetic chronic kidney disease; E11.51 Type 2 diabetes mellitus with diabetic peripheral angiopathy without gangrene; E11.621 Type 2 diabetes mellitus with foot ulcer; E53.8 Deficiency of other specified B group vitamins; E66.9 Obesity, unspecified; E78.00 Pure hypercholesterolemia, unspecified; E78.5 Hyperlipidemia, unspecified; I12.9 Hypertensive chronic kidney disease with stage 1 through stage 4 chronic kidney disease, or unspecified chronic kidney disease; L97.519 Non-pressure chronic ulcer of other part of right foot with unspecified severity; E11.69 Type 2 diabetes mellitus with other specified complication; K83.8 Other specified diseases of biliary tract; K76.0 Fatty (change of) liver, not elsewhere classified; E55.9 Vitamin D deficiency, unspecified; F01.50 Vascular dementia, unspecified severity, without behavioral disturbance, psychotic disturbance, mood disturbance, and anxiety; F39 Unspecified mood [affective] disorder; E11.40 Type 2 diabetes mellitus with diabetic neuropathy, unspecified; R53.81 Other malaise; R97.20 Elevated prostate specific antigen [PSA]; Z20.822 Contact with and (suspected) exposure to COVID-19; Z79.02 Long term (current) use of antithrombotics/antiplatelets; Z82.49 Family history of ischemic heart disease and other diseases of the circulatory system; Z79.4 Long term (current) use of insulin; Z79.82 Long term (current) use of aspirin; Z90.49 Acquired absence of other specified parts of digestive tract; Z79.899 Other long term (current) drug therapy; Z68.31 Body mass index [BMI] 31.0-31.9, adult
CPT/HCPCS: 36415; 36573; 70547; 70551; 73521; 73721; 74181; 76700; 80048; 80053; 80061; 80076; 80305; 80320; 81003; 82306; 82607; 82728; 82746; 82962; 83036; 83540; 83550; 83735; 84100; 84134; 84153; 84439; 84443; 84481; 85025; 85651; 86140; 86705; 86709; 86803; 87070; 87077; 87186; 87340; 87426; 92523; 92610; 93306; 93880; 93923; 93970; 93971; 97110; 97112; 97116; 97162; 97166; 97530; 97535; 97542; 97760; A4565; C1725; J0696; J1644; J1815; J2997; J3420; J3490; J7040; J7060; J8597; G0103; G0480